=== PATIENT | female | born 1985 | race Caucasian/White ===

== ENCOUNTER 2017-02-13 02:56 | Emergency (ER) | payer SELFPAY ==
--- NOTE | 2017-02-13 05:34 | ED ORDER SUMMARY ---
..... 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 (05:41 02/13/2017)] [Electronically signed by Kaiden Anderson Dr. (09:47 02/17/2017)] [Electronically locked/signed by Silvina Shields R.N. (05:41 02/13/2017)]
--- NOTE | 2017-02-13 05:34 | ED NURSING NOTES ---
Clinical Report - Nurses [facility] [place] [address] 02/13/2017 3:00 Patient: CYNTHIA KNOWLES TRIAGE Triage time 03:09. Acuity: LEVEL 4. Chief Complaint: LEFT LOWER EXTREMITY PAIN. Location of symptoms- (left lower leg pain). Alert. GENARO COMA SCORE: Genaro Coma Scale: 15- eyes open spontaneously (4); best verbal response- oriented x 4 (5); best motor response- obeys commands (6). --03:18 Amrik Dubois R.N. 03:09 02/13/17. BP: 107/75. HR: 69. RR: 20 (regular and unlabored). O2 saturation: 100% on room air. Temp: 97.8 F (oral). Pain level now: 11/25. --03:18 Amrik Dubois R.N. Weight: 68 kg stated. Height/Length: 70 inches Per Patient. BMI: 21.5. --03:08 Amrik Dubois R.N. Medications Excedrin Migraine Oral. --03:10 Amrik Dubois R.N. Allergies NKA. --03:10 Amrik Dubois R.N. History Arrived by private vehicle. Historian: patient. Accompanied by friend. This occurred (3 days ago). ( pt states that she awoke in the morning of 3 days ago with left leg pain.). PAST MEDICAL HX: Last normal menstrual period- 6 weeks ago. ( Patient admits that there is a possibility of , because she is not on control). SOCIAL HX: Heavy tobacco smoker (cigarette)- 1 pack per day. Occasional alcohol use. No drug use. ( Denies HI/SI, states that she feels safe at home). ABUSE ASSESSMENT: No report of abuse. FALL RISK ASSESSMENT: Fall risk assessment completed. No fall risk identified. NUTRITIONAL RISK ASSESSMENT: The nutritional risk assessment revealed no deficiencies. LEARNING NEEDS ASSESSMENT: The learning needs assessment revealed no barriers. --03:18 Amrik Dubois R.N. ( Patient denies having a recent trauma to her lower legs). --03:32 Amrik Dubois R.N. PROBLEMS: Migraine Headache. --03:11 Amrik Dubois R.N. ADDITIONAL SURGERIES: no known surgeries. Interventions ID band on patient. To room. --03:18 Amrik Dubois R.N. PHYSICAL ASSESSMENT To room via wheelchair. GENERAL / NEURO / PSYCH: Oriented X 4. Does not appear in pain or distress or anxious. SKIN: Skin is warm and dry. ( sunburn to bilateratal lower legs, patient states that it happened after being in the sun today.). --03:20 Amrik Dubois R.N. EXTREMITIES: ( no LE swelling observed. No external abnormality observed on left lower leg (except for the sunburn, which the patient states she acquired today.) When asked where her leg pain is currently, she indicates the areas of her sunburned-ankles/lower calves. This sunburn is bilateral, with well-defined margins and roughly rectangular shaped on both left and right). --03:31 Amrik Dubois R.N. NURSING PROGRESS NOTES Patient gowned. Reassurance given. Two patient identifiers checked. Call light placed in reach. Side rails up x 1. Bed placed in lowest position. Brakes of bed on. Patient ready for evaluation- chart flagged. Patient waiting for evaluation. ( Patient reports to me that her last BM was "3 days ago."). --03:20 Amrik Dubois R.N. 03:51 02/13/2017 Hydrocodone-APAP (Hydrocodone-Acetaminophen) PO 5/325 mg Tablets 1 tab given. Allergies verified, confirmed 5 rights and sedative warning given to the patient. --03:51 Amrik Dubois R.N. ( [employer] stated that she would arrive in 45 minutes. I notified the patient of the Ultrasound's estimated time of arrival.). --03:52 Amrik Dubois R.N. DISPOSITION / DISCHARGE 05:36 02/13/17. BP: 120/73. HR: 65. RR: 15. O2 saturation: 100%. Temp: deferred. Pelletier-Mai pain scale: 4/10. --05:37 Silvina Shields R.N. Condition at departure: stable. No learning barriers present. Discharge instructions provided and reviewed with the patient. Reviewed medication(s) side effects, precautions, dosing and course information. Prescription(s) given to the patient. Patient verbalized understanding. Written instructions provided in Polish. The patient was discharged home and accompanied by sound tester. She left the Emergency Department ambulatory and via private vehicle. 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 --05:41 Silvina Shields R.N. Locked/Released at 02/13/2017 5:41 by Silvina Shields R.N.
--- NOTE | 2017-02-13 05:34 | ED ORDER SUMMARY ---
..... Patient: CYNTHIA KNOWLES OrderSheet [facility] VisitID: [id number] [address] [place] [address] 31y, F Registration Date/Time: 02/13/2017 ORDER SHEET Weight: 68.0 kg (stated) Allergies: NKA GENERAL ORDERS: US Venous Bilat Urgent (03:44 02/13/2017 Olesya Buckley) (Ack 3:48 Db Manager Environmental Services) (5:41 Santa R.N.) MEDICATION ORDERS: Hydrocodone-APAP PO 5/325 mg (NOW, HIGH ALERT MEDICATION) (03:45 02/13/2017 Olesya Buckley) (3:51 Ginger R.NPenny) IV FLUIDS: ORDER SHEET NOTES: [Electronically signed by Silvina Shields R.N. (05:41 02/13/2017)] [Electronically signed by Kaiden Anderson Dr. (09:47 02/17/2017)] [Electronically locked/signed by Silvina Shields R.N. (05:41 02/13/2017)]
--- NOTE | 2017-02-13 05:34 | ED NURSING NOTES ---
Clinical Report - Nurses [facility] [place] [address] 02/13/2017 3:00 Patient: CYNTHIA KNOWLES TRIAGE Triage time 03:09. Acuity: LEVEL 4. Chief Complaint: LEFT LOWER EXTREMITY PAIN. Location of symptoms- (left lower leg pain). Alert. GENARO COMA SCORE: Genaro Coma Scale: 15- eyes open spontaneously (4); best verbal response- oriented x 4 (5); best motor response- obeys commands (6). --03:18 Amrik Dubois R.N. 03:09 02/13/17. BP: 107/75. HR: 69. RR: 20 (regular and unlabored). O2 saturation: 100% on room air. Temp: 97.8 F (oral). Pain level now: 11/25. --03:18 Amrik Dubois R.N. Weight: 68 kg stated. Height/Length: 70 inches Per Patient. BMI: 21.5. --03:08 Amrik Dubois R.N. Medications Excedrin Migraine Oral. --03:10 Amrik Dubois R.N. Allergies NKA. --03:10 Amrik Dubois R.N. History Arrived by private vehicle. Historian: patient. Accompanied by friend. This occurred (3 days ago). ( pt states that she awoke in the morning of 3 days ago with left leg pain.). PAST MEDICAL HX: Last normal menstrual period- 6 weeks ago. ( Patient admits that there is a possibility of , because she is not on control). SOCIAL HX: Heavy tobacco smoker (cigarette)- 1 pack per day. Occasional alcohol use. No drug use. ( Denies HI/SI, states that she feels safe at home). ABUSE ASSESSMENT: No report of abuse. FALL RISK ASSESSMENT: Fall risk assessment completed. No fall risk identified. NUTRITIONAL RISK ASSESSMENT: The nutritional risk assessment revealed no deficiencies. LEARNING NEEDS ASSESSMENT: The learning needs assessment revealed no barriers. --03:18 Amrik Dubois R.N. ( Patient denies having a recent trauma to her lower legs). --03:32 Amrik Dubois R.N. PROBLEMS: Migraine Headache. --03:11 Amrik Dubois R.N. ADDITIONAL SURGERIES: no known surgeries. Interventions ID band on patient. To room. --03:18 Amrik Dubois R.N. PHYSICAL ASSESSMENT To room via wheelchair. GENERAL / NEURO / PSYCH: Oriented X 4. Does not appear in pain or distress or anxious. SKIN: Skin is warm and dry. ( sunburn to bilateratal lower legs, patient states that it happened after being in the sun today.). --03:20 Amrik Dubois R.N. EXTREMITIES: ( no LE swelling observed. No external abnormality observed on left lower leg (except for the sunburn, which the patient states she acquired today.) When asked where her leg pain is currently, she indicates the areas of her sunburned-ankles/lower calves. This sunburn is bilateral, with well-defined margins and roughly rectangular shaped on both left and right). --03:31 Amrik Dubois R.N. NURSING PROGRESS NOTES Patient gowned. Reassurance given. Two patient identifiers checked. Call light placed in reach. Side rails up x 1. Bed placed in lowest position. Brakes of bed on. Patient ready for evaluation- chart flagged. Patient waiting for evaluation. ( Patient reports to me that her last BM was "3 days ago."). --03:20 Amrik Dubois R.N. 03:51 02/13/2017 Hydrocodone-APAP (Hydrocodone-Acetaminophen) PO 5/325 mg Tablets 1 tab given. Allergies verified, confirmed 5 rights and sedative warning given to the patient. --03:51 Amrik Dubois R.N. ( [employer] stated that she would arrive in 45 minutes. I notified the patient of the Ultrasound's estimated time of arrival.). --03:52 Amrik Dubois R.N. DISPOSITION / DISCHARGE 05:36 02/13/17. BP: 120/73. HR: 65. RR: 15. O2 saturation: 100%. Temp: deferred. Pelletier-Mai pain scale: 4/10. --05:37 Silvina Shields R.N. Condition at departure: stable. No learning barriers present. Discharge instructions provided and reviewed with the patient. Reviewed medication(s) side effects, precautions, dosing and course information. Prescription(s) given to the patient. Patient verbalized understanding. Written instructions provided in Frisian. The patient was discharged home and accompanied by high rigger. She left the Emergency Department ambulatory and via private vehicle. 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 --05:41 Silvina Shields R.N. Locked/Released at 02/13/2017 5:41 by Silvina Shields R.N.
--- NOTE | 2017-02-13 05:34 | ED CLINICAL REPORT ---
Clinical Report - Physicians/Mid Levels [facility] [address] [place] [address] 02/13/2017 3:00 Patient: CYNTHIA KNOWLES Time Seen: 0340. Arrived- By private vehicle. Historian- patient. HISTORY OF PRESENT ILLNESS Chief Complaint: (pain the legs bilaterally with sunburn over those areas). This started today and is still present. It was gradual in onset and has been constant but is not gone now. It is described as painful and burning. It has been located on the right lower extremity and left lower extremity. A possible cause has been identified (sunburn). (patient describes pain to the legs bilaterally but more on the left than on the right. When asked if there is swelling to the legs she has notice, patient states yes they are a little swollen without signs of swelling on my exam. patient also states she is having a cough, fever, generalized rash and itching to the skin. Patient reports she is "infected".). Similar symptoms previously: None. Recent medical care: Not recently seen/assessed. REVIEW OF SYSTEMS The patient has had fever, a sore throat and cough and nausea. All systems otherwise negative, except as recorded above. PAST HISTORY See nurses notes. Tetanus immunization status is up-to-date. ADDITIONAL NOTES The nursing notes have been reviewed. PHYSICAL EXAM Vital Signs: 02/13/2017 05:36 BP: 120/73. HR: 65. RR: 15. O2 saturation: 100%. Pelletier-Mai pain scale: 4/10. Blood pressure normal. Oxygen saturation normal. Appearance: Alert. Oriented X3. No acute distress. Eyes: Pupils equal, round and reactive to light. Conjunctivae and eyelids normal. ENT: Ears normal. Nose normal. Pharynx normal. Neck: Neck supple. No lymphadenopathy or meningeal signs. CVS: Normal heart rate and rhythm. Heart sounds normal. Respiratory: No respiratory distress. Breath sounds normal. Chest nontender. Abdomen: Nontender. No organomegaly. Skin: Skin warm and dry. Normal skin color. No rash. Normal skin turgor. No abscess. (except for the arms and legs with excoriated areas in different stages of healing. no signs of infection, fb, or active bleeding. Small rectangular are of 1st degree burn to the ankles bilaterally and symmetrical.). Extremities: Normal external inspection. Extremities nontender. (no edema. no palpable cord. no calf tenderness. DP and PT pulses 2+ and symmetrical. compartments soft.). Neuro: Oriented X 3. No motor deficit. No sensory deficit. LABS, X-RAYS, AND EKG Lower Extremity Sonography: Negative exam. No compression abnormality noted. Vessels patent. Augmented flow present. The exam was performed by a exercise equipment repair technician. The study was independently viewed by me and interpreted by the radiologist. The study was discussed with the radiologist (via pacs). PROGRESS AND PROCEDURES Course of Care: The patient is a pleassnat 31 yo female with a number of medical concerns. She states there are several entities which are seeming unrelated. No breathing problems. No crackels. vitals are normal. Feel CXR and radiation exposure too significant given normal exam. Patient could have DVT and will be evaluated for this. No signs of skin infection. Patient agreeable to work up. Pain medication provided. Safe ride home verified. patient without signs of DVT on US. patient low risk for DVT. Discussed with patient her work up here in the Emergency dpeartment, diagnosis, home care, follow up, and return precautions. All questionsanswered. the patient expressed understanding of these instructions andwas agreeable to them. Disposition: Discharged. Condition: good. CLINICAL IMPRESSION Multiple first degree valenzuela to the right ankle and left ankle. No burn with infection present. INSTRUCTIONS Warnings: GENERAL WARNINGS: Return or contact your physician immediately if your condition worsens or changes unexpectedly, if not improving as expected, or if other problems arise. Specifically return if pain, vomiting, bleeding, breathing difficulty or fever. Your Current Medications: CONTINUE TAKING THE FOLLOWING MEDICATIONS: Excedrin Migraine Oral. Prescription Medications: Triamcinolone 0.5% cream: apply to affected areas daily for 2 weeks, as needed for itching, rash or irritation. Dispense sixty (60) grams. No refills. (Do not use longer than 2 weeks.) Follow-up: Return to the emergency department as needed. Follow up with your doctor in one week. Reason for referral: recheck today's concerns. Summary of care provided to patient via paper. Screening today revealed the patient's blood pressure to be in the normal range. The patient should follow up with a primary care provider for blood pressure management. Understanding of the discharge instructions verbalized by patient. Follow-up with: [facility], , , [address], , [place], [id number] Follow up in one week. Reason for referral: contact to schedule an appointment if you do not have a primary care provider (PCP). Summary of care provided to patient via paper. (Electronically signed by Kaiden Anderson Dr. 02/17/2017 9:47)
--- NOTE | 2017-02-13 05:34 | ED CLINICAL REPORT ---
Clinical Report - Physicians/Mid Levels [facility] [address] [place] [address] 02/13/2017 3:00 Patient: CYNTHIA KNOWLES Time Seen: 0340. Arrived- By private vehicle. Historian- patient. HISTORY OF PRESENT ILLNESS Chief Complaint: (pain the legs bilaterally with sunburn over those areas). This started today and is still present. It was gradual in onset and has been constant but is not gone now. It is described as painful and burning. It has been located on the right lower extremity and left lower extremity. A possible cause has been identified (sunburn). (patient describes pain to the legs bilaterally but more on the left than on the right. When asked if there is swelling to the legs she has notice, patient states yes they are a little swollen without signs of swelling on my exam. patient also states she is having a cough, fever, generalized rash and itching to the skin. Patient reports she is "infected".). Similar symptoms previously: None. Recent medical care: Not recently seen/assessed. REVIEW OF SYSTEMS The patient has had fever, a sore throat and cough and nausea. All systems otherwise negative, except as recorded above. PAST HISTORY See nurses notes. Tetanus immunization status is up-to-date. ADDITIONAL NOTES The nursing notes have been reviewed. PHYSICAL EXAM Vital Signs: 02/13/2017 05:36 BP: 120/73. HR: 65. RR: 15. O2 saturation: 100%. Pelletier-Mai pain scale: 4/10. Blood pressure normal. Oxygen saturation normal. Appearance: Alert. Oriented X3. No acute distress. Eyes: Pupils equal, round and reactive to light. Conjunctivae and eyelids normal. ENT: Ears normal. Nose normal. Pharynx normal. Neck: Neck supple. No lymphadenopathy or meningeal signs. CVS: Normal heart rate and rhythm. Heart sounds normal. Respiratory: No respiratory distress. Breath sounds normal. Chest nontender. Abdomen: Nontender. No organomegaly. Skin: Skin warm and dry. Normal skin color. No rash. Normal skin turgor. No abscess. (except for the arms and legs with excoriated areas in different stages of healing. no signs of infection, fb, or active bleeding. Small rectangular are of 1st degree burn to the ankles bilaterally and symmetrical.). Extremities: Normal external inspection. Extremities nontender. (no edema. no palpable cord. no calf tenderness. DP and PT pulses 2+ and symmetrical. compartments soft.). Neuro: Oriented X 3. No motor deficit. No sensory deficit. LABS, X-RAYS, AND EKG Lower Extremity Sonography: Negative exam. No compression abnormality noted. Vessels patent. Augmented flow present. The exam was performed by a stress test technician. The study was independently viewed by me and interpreted by the radiologist. The study was discussed with the radiologist (via pacs). PROGRESS AND PROCEDURES Course of Care: The patient is a pleassnat 31 yo female with a number of medical concerns. She states there are several entities which are seeming unrelated. No breathing problems. No crackels. vitals are normal. Feel CXR and radiation exposure too significant given normal exam. Patient could have DVT and will be evaluated for this. No signs of skin infection. Patient agreeable to work up. Pain medication provided. Safe ride home verified. patient without signs of DVT on US. patient low risk for DVT. Discussed with patient her work up here in the Emergency dpeartment, diagnosis, home care, follow up, and return precautions. All questionsanswered. the patient expressed understanding of these instructions andwas agreeable to them. Disposition: Discharged. Condition: good. CLINICAL IMPRESSION Multiple first degree valenzuela to the right ankle and left ankle. No burn with infection present. INSTRUCTIONS Warnings: GENERAL WARNINGS: Return or contact your physician immediately if your condition worsens or changes unexpectedly, if not improving as expected, or if other problems arise. Specifically return if pain, vomiting, bleeding, breathing difficulty or fever. Your Current Medications: CONTINUE TAKING THE FOLLOWING MEDICATIONS: Excedrin Migraine Oral. Prescription Medications: Triamcinolone 0.5% cream: apply to affected areas daily for 2 weeks, as needed for itching, rash or irritation. Dispense sixty (60) grams. No refills. (Do not use longer than 2 weeks.) Follow-up: Return to the emergency department as needed. Follow up with your doctor in one week. Reason for referral: recheck today's concerns. Summary of care provided to patient via paper. Screening today revealed the patient's blood pressure to be in the normal range. The patient should follow up with a primary care provider for blood pressure management. Understanding of the discharge instructions verbalized by patient. Follow-up with: [facility], , , [address], , [place], [id number] Follow up in one week. Reason for referral: contact to schedule an appointment if you do not have a primary care provider (PCP). Summary of care provided to patient via paper. (Electronically signed by Kaiden Anderson Dr. 02/17/2017 9:47)
--- NOTE | 2017-02-13 06:14 | DIAGNOSTIC IMAGING REPORT ---
PROCEDURE: US VENOUS - BILATERAL EXT INDICATION: Bilateral lower extremity pain. TECHNIQUE: Color Doppler duplex imaging of the deep and superficial venous system without and with compression. COMPARISON: None. FINDINGS: RIGHT LOWER EXTREMITY: Deep and superficial venous system of the right lower extremity is within normal limits. There is no evidence of deep vein thrombosis or superficial thrombophlebitis. LEFT LOWER EXTREMITY: Deep and superficial venous system of the left lower extremity is within normal limits. There is no evidence of deep vein thrombosis or superficial thrombophlebitis. IMPRESSION: 1. Negative venous ultrasound of the bilateral lower extremities.
--- NOTE | 2017-02-17 09:49 | ED DISCHARGE INSTRUCTIONS ---
Patient: CYNTHIA KNOWLES General Instructions [facility] VisitID: [id number] [address] [place] [address] 31y, F Registration Date/Time: 02/13/2017 Multiple first degree valenzuela to the right ankle and left ankle. No burn with infection present. INSTRUCTIONS Warnings: GENERAL WARNINGS: Return or contact your physician immediately if your condition worsens or changes unexpectedly, if not improving as expected, or if other problems arise. Specifically return if pain, vomiting, bleeding, breathing difficulty or fever. Your Current Medications: CONTINUE TAKING THE FOLLOWING MEDICATIONS: Excedrin Migraine Oral. Prescription Medications: Triamcinolone 0.5% cream: apply to affected areas daily for 2 weeks, as needed for itching, rash or irritation. Dispense sixty (60) grams. No refills. (Do not use longer than 2 weeks.) Follow-up: Return to the emergency department as needed. Follow up with your doctor in one week. Reason for referral: recheck today's concerns. Summary of care provided to patient via paper. Screening today revealed the patient's blood pressure to be in the normal range. The patient should follow up with a primary care provider for blood pressure management. Understanding of the discharge instructions verbalized by patient. Follow-up with: [facility], , , [address], [place], [id number] Follow up in one week. Reason for referral: contact to schedule an appointment if you do not have a primary care provider (PCP). Summary of care provided to patient via paper. ADDITIONAL INFORMATION Sunburn A sunburn is an injury to the skin caused by over-exposure to ultraviolet (UV) light from the sun. The skin becomes pink or red and painful. There may be headache and a low grade fever. Very severe sunburns may cause blistering and fluid draining from the skin. Open blisters may become infected, so watch for the signs below. The reaction begins to get better after 12 days. A few days later the skin begins to peel. Depending on how severe the burn is, it may take up to three weeks to fully heal. Home care The following guidelines will help you care for you sunburn at home: 1) Apply an ice pack (ice cubes in a plastic bag, wrapped in a towel) over the injured area for 20 minutes every 12 hours the first day for pain relief. Continue this 34 times a day until the pain goes away. Cool baths and showers will also give relief. 2) Fjlb-gcn-xdywtno first-aid creams and sprays contain lidocaine or benzocaine, an anesthetic which also relieves pain. However, some persons are sensitive to "geo". If redness or itching increases, discontinue their use. 3) If blisters appear, don't break them. Open blisters slow the healing process and increase the risk of infection. Treat open blisters with antibacterial cream or ointment. 4) Wash the burned area daily with soap and water. Pat dry with a clean towel. Apply a moisturizing cream with aloe. Hydrocortisone cream (sold over the counter) may help decrease pain and swelling and speed up healing. If a dressing was applied, reapply it until any open blisters dry up. If the bandage sticks, soak it off in warm water. 5) You may use ibuprofen or naproxen to control pain, unless another pain medicine was prescribed. If you have chronic liver or kidney disease or ever had a stomach ulcer or GI bleeding, talk with your doctor before using these medicines. Do not use ibuprofen in children under six months of age. 6) Drink plenty of fluids to avoid dehydration. Prevention Sun exposure damages the DNA of skin cells and contributes to aging skin. It is the main cause of skin cancer. Protect your skin using the tips below: Limit your exposure to UV light. The sun is strongest during the hours 10 a.m. and 4 p.m. If possible, arrange your sun exposure to be before or after those hours. The effect is more intense at the beach where light reflects off the sand and water, and at higher altitudes, especially where there is reflecting snow. You can even get a sunburn on a cloudy day, since most of the UV light passes through clouds. Cover up with clothing and a hat. Clothing is more effective than sunscreen in blocking UV light. Stay in the shade or carry an umbrella. Apply sunscreen to uncovered skin. Reapply every two hours, and sooner if it is washed away by sweating or water. Use a sunscreen rated at SPF 15 or higher. Wear sunglasses to protect your eyes from UV exposure. Many heart, nausea, anti-inflammatory, and diabetic medications, as well as antibiotics and diuretics, can increase yoursensitivityto the sun. Check medication pamphlets and talk with your doctor if you are unsure about your increased risk of sun sensitivity. Sunscreens may not prevent this response. Follow-up care Most sunburns heal without infection. Occasionally an infection may occur despite proper treatment. Therefore, watch for the signs of infection listed below. When to seek medical care Get prompt medical attention if any of the following occur: Increasing pain Increasing redness, or red streaks leading away from an open blister Swelling or pus coming from open blisters Fever over 100.4 F (38.0 C) Triamcinolone Acetonide, Distilled Water Topical cream What is this medicine? TRIAMCINOLONE (trye am SIN oh lone) is a corticosteroid. It is used on the skin to reduce swelling, redness, itching, and allergic reactions. How should I use this medicine? This medicine is for external use only. Do not take by mouth. Follow the directions on the prescription label. Wash your hands before and after use. Apply a thin film of medicine to the affected area. Do not cover with a bandage or dressing unless your doctor or health hospice spiritual care coordinator tells you to. Do not use on healthy skin or over large areas of skin. Do not get this medicine in your eyes. If you do, rinse out with plenty of cool tap water. It is important not to use more medicine than prescribed. Do not use your medicine more often than directed. Talk to your winch runner regarding the use of this medicine in children. Special care may be needed. Elderly patients are more likely to have damaged skin through aging, and this may increase side effects. This medicine should only be used for brief periods and infrequently in older patients. What side effects may I notice from receiving this medicine? Side effects that you should report to your doctor or health hospice spiritual care coordinator as soon as possible: burning or itching of the skin dark red spots on the skin infection painful, red, pus filled blisters in hair follicles thinning of the skin, sunburn more likely especially on the face Side effects that usually do not require medical attention (report to your doctor or health hospice spiritual care coordinator if they continue or are bothersome): dry skin, irritation unusual increased growth of hair on the face or body What may interact with this medicine? Interactions are not expected. What if I miss a dose? If you miss a dose, use it as soon as you can. If it is almost time for your next dose, use only that dose. Do not use double or extra doses. Where should I keep my medicine? Keep out of the reach of children. Store at room temperature between 15 and 30 degrees C (59 and 86 degrees F). Do not freeze. Throw away any unused medicine after the expiration date. What should I tell my health care provider before I take this medicine? They need to know if you have any of these conditions: diabetes infection, like tuberculosis, herpes, or fungal infection large areas of burned or damaged skin skin wasting or thinning an unusual or allergic reaction to triamcinolone, corticosteroids, other medicines, foods, dyes, or preservatives or trying to get breast-feeding What should I watch for while using this medicine? Tell your doctor or health hospice spiritual care coordinator if your symptoms do not start to get better within one week. Do not use for more than 14 days. Do not use on healthy skin or over large areas of skin. Tell your doctor or health hospice spiritual care coordinator if you are exposed to anyone with measles or chickenpox, or if you develop sores or blisters that do not heal properly. Do not use an airtight bandage to cover the affected area unless your doctor or health hospice spiritual care coordinator tells you to. If you are to cover the area, follow the instructions carefully. Covering the area where the medicine is applied can increase the amount that passes through the skin and increases the risk of side effects. If treating the diaper area of a child, avoid covering the treated area with tight-fitting diapers or plastic pants. This may increase the amount of medicine that passes through the skin and increase the risk of serious side effects. You have been given the following additional information: Sunburn Triamcinolone Acetonide, Distilled Water Topical cream (Electronically signed by Kaiden Anderson Dr. 02/17/2017 9:47)
--- NOTE | 2017-02-17 09:49 | ED MED RECONCILIATION SUMMARY ---
Patient: CYNTHIA KNOWLES Medication Reconciliation Report [facility] VisitID: [id number] [place] [address] 31y, F Registration Date/Time: 02/13/2017 Weight: 68.0 kg Height/Length: 70 in. BMI: 21.5 ALLERGIES: NKA The patient's Home Medications are listed below: CONTINUE TAKING THE FOLLOWING MEDICATIONS: Excedrin Migraine Oral The source(s) of the original Home Medication information: Not obtained. The following Medications were given to the patient in the Emergency Department: Hydrocodone-APAP [PO] PO 1 tab, administered: 02/13/2017 3:51:00 AM The following Medications were prescribed to the patient: Triamcinolone 0.5% cream: apply to affected areas daily for 2 weeks, as needed for itching, rash or irritation. Dispense sixty (60) grams. No refills.(Do not use longer than 2 weeks.) -- Kaiden Anderson Dr.
--- NOTE | 2017-02-17 09:49 | ED MAR SUMMARY ---
..... Medication Administration Record [facility] [address] [place] [address] Patient: CYNTHIA KNOWLES Visit ID: [id number] 31y, F Weight: 68.0 kg Height/Length: 70 in BMI: 21.5 ALLERGIES: NKA Given 03:51 02/13/2017 Amrik Dubois R.N. Medication Administered: HYDROCODONE-APAP [PO] (HYDROCODONE-ACETAMINOPHEN), Dose: 1 tab 5/325 mg Tablets PO. Medication Ordered: Hydrocodone-APAP PO 5/325 mg (NOW, HIGH ALERT MEDICATION).
--- NOTE | 2017-02-17 09:49 | ED DISCHARGE INSTRUCTIONS ---
Patient: CYNTHIA KNOWLES General Instructions [facility] VisitID: [id number] [address] [place] [address] 31y, F Registration Date/Time: 02/13/2017 Multiple first degree valenzuela to the right ankle and left ankle. No burn with infection present. INSTRUCTIONS Warnings: GENERAL WARNINGS: Return or contact your physician immediately if your condition worsens or changes unexpectedly, if not improving as expected, or if other problems arise. Specifically return if pain, vomiting, bleeding, breathing difficulty or fever. Your Current Medications: CONTINUE TAKING THE FOLLOWING MEDICATIONS: Excedrin Migraine Oral. Prescription Medications: Triamcinolone 0.5% cream: apply to affected areas daily for 2 weeks, as needed for itching, rash or irritation. Dispense sixty (60) grams. No refills. (Do not use longer than 2 weeks.) Follow-up: Return to the emergency department as needed. Follow up with your doctor in one week. Reason for referral: recheck today's concerns. Summary of care provided to patient via paper. Screening today revealed the patient's blood pressure to be in the normal range. The patient should follow up with a primary care provider for blood pressure management. Understanding of the discharge instructions verbalized by patient. Follow-up with: [facility], , , [address], [place], [id number] Follow up in one week. Reason for referral: contact to schedule an appointment if you do not have a primary care provider (PCP). Summary of care provided to patient via paper. ADDITIONAL INFORMATION Sunburn A sunburn is an injury to the skin caused by over-exposure to ultraviolet (UV) light from the sun. The skin becomes pink or red and painful. There may be headache and a low grade fever. Very severe sunburns may cause blistering and fluid draining from the skin. Open blisters may become infected, so watch for the signs below. The reaction begins to get better after 12 days. A few days later the skin begins to peel. Depending on how severe the burn is, it may take up to three weeks to fully heal. Home care The following guidelines will help you care for you sunburn at home: 1) Apply an ice pack (ice cubes in a plastic bag, wrapped in a towel) over the injured area for 20 minutes every 12 hours the first day for pain relief. Continue this 34 times a day until the pain goes away. Cool baths and showers will also give relief. 2) Tcpp-yal-riikdnk first-aid creams and sprays contain lidocaine or benzocaine, an anesthetic which also relieves pain. However, some persons are sensitive to "geo". If redness or itching increases, discontinue their use. 3) If blisters appear, don't break them. Open blisters slow the healing process and increase the risk of infection. Treat open blisters with antibacterial cream or ointment. 4) Wash the burned area daily with soap and water. Pat dry with a clean towel. Apply a moisturizing cream with aloe. Hydrocortisone cream (sold over the counter) may help decrease pain and swelling and speed up healing. If a dressing was applied, reapply it until any open blisters dry up. If the bandage sticks, soak it off in warm water. 5) You may use ibuprofen or naproxen to control pain, unless another pain medicine was prescribed. If you have chronic liver or kidney disease or ever had a stomach ulcer or GI bleeding, talk with your doctor before using these medicines. Do not use ibuprofen in children under six months of age. 6) Drink plenty of fluids to avoid dehydration. Prevention Sun exposure damages the DNA of skin cells and contributes to aging skin. It is the main cause of skin cancer. Protect your skin using the tips below: Limit your exposure to UV light. The sun is strongest during the hours 10 a.m. and 4 p.m. If possible, arrange your sun exposure to be before or after those hours. The effect is more intense at the beach where light reflects off the sand and water, and at higher altitudes, especially where there is reflecting snow. You can even get a sunburn on a cloudy day, since most of the UV light passes through clouds. Cover up with clothing and a hat. Clothing is more effective than sunscreen in blocking UV light. Stay in the shade or carry an umbrella. Apply sunscreen to uncovered skin. Reapply every two hours, and sooner if it is washed away by sweating or water. Use a sunscreen rated at SPF 15 or higher. Wear sunglasses to protect your eyes from UV exposure. Many heart, nausea, anti-inflammatory, and diabetic medications, as well as antibiotics and diuretics, can increase yoursensitivityto the sun. Check medication pamphlets and talk with your doctor if you are unsure about your increased risk of sun sensitivity. Sunscreens may not prevent this response. Follow-up care Most sunburns heal without infection. Occasionally an infection may occur despite proper treatment. Therefore, watch for the signs of infection listed below. When to seek medical care Get prompt medical attention if any of the following occur: Increasing pain Increasing redness, or red streaks leading away from an open blister Swelling or pus coming from open blisters Fever over 100.4 F (38.0 C) Triamcinolone Acetonide, Distilled Water Topical cream What is this medicine? TRIAMCINOLONE (trye am SIN oh lone) is a corticosteroid. It is used on the skin to reduce swelling, redness, itching, and allergic reactions. How should I use this medicine? This medicine is for external use only. Do not take by mouth. Follow the directions on the prescription label. Wash your hands before and after use. Apply a thin film of medicine to the affected area. Do not cover with a bandage or dressing unless your doctor or health medicare sales executive tells you to. Do not use on healthy skin or over large areas of skin. Do not get this medicine in your eyes. If you do, rinse out with plenty of cool tap water. It is important not to use more medicine than prescribed. Do not use your medicine more often than directed. Talk to your public service representative regarding the use of this medicine in children. Special care may be needed. Elderly patients are more likely to have damaged skin through aging, and this may increase side effects. This medicine should only be used for brief periods and infrequently in older patients. What side effects may I notice from receiving this medicine? Side effects that you should report to your doctor or health medicare sales executive as soon as possible: burning or itching of the skin dark red spots on the skin infection painful, red, pus filled blisters in hair follicles thinning of the skin, sunburn more likely especially on the face Side effects that usually do not require medical attention (report to your doctor or health medicare sales executive if they continue or are bothersome): dry skin, irritation unusual increased growth of hair on the face or body What may interact with this medicine? Interactions are not expected. What if I miss a dose? If you miss a dose, use it as soon as you can. If it is almost time for your next dose, use only that dose. Do not use double or extra doses. Where should I keep my medicine? Keep out of the reach of children. Store at room temperature between 15 and 30 degrees C (59 and 86 degrees F). Do not freeze. Throw away any unused medicine after the expiration date. What should I tell my health care provider before I take this medicine? They need to know if you have any of these conditions: diabetes infection, like tuberculosis, herpes, or fungal infection large areas of burned or damaged skin skin wasting or thinning an unusual or allergic reaction to triamcinolone, corticosteroids, other medicines, foods, dyes, or preservatives or trying to get breast-feeding What should I watch for while using this medicine? Tell your doctor or health medicare sales executive if your symptoms do not start to get better within one week. Do not use for more than 14 days. Do not use on healthy skin or over large areas of skin. Tell your doctor or health medicare sales executive if you are exposed to anyone with measles or chickenpox, or if you develop sores or blisters that do not heal properly. Do not use an airtight bandage to cover the affected area unless your doctor or health medicare sales executive tells you to. If you are to cover the area, follow the instructions carefully. Covering the area where the medicine is applied can increase the amount that passes through the skin and increases the risk of side effects. If treating the diaper area of a child, avoid covering the treated area with tight-fitting diapers or plastic pants. This may increase the amount of medicine that passes through the skin and increase the risk of serious side effects. You have been given the following additional information: Sunburn Triamcinolone Acetonide, Distilled Water Topical cream (Electronically signed by Kaiden Anderson Dr. 02/17/2017 9:47)
--- NOTE | 2017-02-17 09:49 | ED MAR SUMMARY ---
..... Medication Administration Record [facility] [address] [place] [address] Patient: CYNTHIA KNOWLES Visit ID: [id number] 31y, F Weight: 68.0 kg Height/Length: 70 in BMI: 21.5 ALLERGIES: NKA Given 03:51 02/13/2017 Amrik Dubois R.N. Medication Administered: HYDROCODONE-APAP [PO] (HYDROCODONE-ACETAMINOPHEN), Dose: 1 tab 5/325 mg Tablets PO. Medication Ordered: Hydrocodone-APAP PO 5/325 mg (NOW, HIGH ALERT MEDICATION).
--- NOTE | 2017-02-17 09:49 | ED MED RECONCILIATION SUMMARY ---
Patient: CYNTHIA KNOWLES Medication Reconciliation Report [facility] VisitID: [id number] [place] [address] 31y, F Registration Date/Time: 02/13/2017 Weight: 68.0 kg Height/Length: 70 in. BMI: 21.5 ALLERGIES: NKA The patient's Home Medications are listed below: CONTINUE TAKING THE FOLLOWING MEDICATIONS: Excedrin Migraine Oral The source(s) of the original Home Medication information: Not obtained. The following Medications were given to the patient in the Emergency Department: Hydrocodone-APAP [PO] PO 1 tab, administered: 02/13/2017 3:51:00 AM The following Medications were prescribed to the patient: Triamcinolone 0.5% cream: apply to affected areas daily for 2 weeks, as needed for itching, rash or irritation. Dispense sixty (60) grams. No refills.(Do not use longer than 2 weeks.) -- Kaiden Anderson Dr.
== END 2017-02-13 05:42 | disposition home or self-care (01) ==
LOC: ED SRH 02:56
DX: L55.0 Sunburn of first degree (principal); M79.605 Pain in left leg; M79.604 Pain in right leg

== ENCOUNTER 2017-02-17 16:41 | Emergency (ER) | payer SELFPAY ==
--- NOTE | 2017-02-17 19:22 | DIAGNOSTIC IMAGING REPORT ---
PROCEDURE: US COMPLETE PELVIC INDICATION: Pelvic pain and fullness. TECHNIQUE: Transabdominal kim scale and color Doppler sonographic images. COMPARISON: None. FINDINGS: Study is limited as bladder is incompletely filled. Uterus is retroverted only partially visualized (obscured by bowel gas). Ovaries are not identified. No evidence of free fluid. Kidneys are normal (right 11.0 cm, left 10.2 cm). IMPRESSION: 1. Limited pelvic ultrasound (bladder incompletely filled). 2. Retroverted uterus (normal variant). 3. No evidence of free fluid.
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
--- NOTE | 2017-02-17 23:21 | ED ORDER SUMMARY ---
..... Patient: CYNTHAI KNOWLES OrderSheet [facility] VisitID: [id number] [place] [address] 31y, F Registration Date/Time: 02/17/2017 ORDER SHEET Weight: 70.3 kg (stated) Allergies: NKA GENERAL ORDERS: Urine Urgent (16:59 02/17/2017 EKoroleva P.A.-C) (Ack 17:06 KHoerner) (20:48 CBradburn R.N.) Urine Drug Screen Urgent (16:59 02/17/2017 EKoroleva P.A.-C) (Ack 17:06 KHoerner) (20:48 CBradburn R.N.) UA-Culture if indicated Urgent (16:59 02/17/2017 EKoroleva P.A.-C) (Ack 17:06 KHoerner) (20:48 CBradburn R.N.) CMP Urgent (16:59 02/17/2017 EKoroleva P.A.-C) (Ack 17:06 KHoerner) (17:59 KHoerner) CBC w Diff Urgent (16:59 02/17/2017 EKoroleva P.A.-C) (Ack 17:06 KHoerner) (17:59 KHoerner) US Pelvic Complete Urgent (17:18 02/17/2017 EKoroleva P.A.-C) (Ack 17:19 KHoerner) (23:11 Rich) Serum Qualitative Urgent (17:54 02/17/2017 EKoroleva P.A.-C) (Ack 17:56 KHoerner) (17:59 KHoerner) TSH Urgent (17:59 02/17/2017 EKoroleva P.A.-C) (17:59 KHoerner) Ethyl Alcohol Urgent (19:48 02/17/2017 EKoroleva P.A.-C) (19:51 AMcQuoid ER Tech1) MEDICATION ORDERS: Ceftriaxone IM 250 mg (NOW) (23:02 02/17/2017 EKoroleva P.A.-C) (Ack 23:08 CBradburn R.N.) (23:23 BLANCAradburn R.N.) Azithromycin PO 1000 mg (NOW) (23:02 02/17/2017 EKoroleva P.A.-C) (Ack 23:08 CBradburn R.N.) (23:24 CBradburn R.N.) Plan B PO 1.5 mg (NOW) (23:03 02/17/2017 EKoroleva P.A.-C) (Ack 23:08 BLANCAradburn R.N.) (23:24 CBradburn R.N.) Metronidazole PO 2000 mg (NOW) (23:07 02/17/2017 EKoroleva P.A.-C) (Ack 23:08 BLANCAradburn R.N.) (23:24 CBradburn R.N.) IV FLUIDS: ORDER SHEET NOTES: [Electronically signed by Jacqueline Jung PPennyAPenny-C (23:28 02/17/2017)] [Electronically signed by Casie Winchester R.N. (23:44 02/17/2017)] [Electronically locked/signed by Casie Winchester R.N. (23:44 02/17/2017)]
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
--- NOTE | 2017-02-17 23:21 | ED ORDER SUMMARY ---
..... Patient: CYNTHIA KNOWLES OrderSheet [facility] VisitID: [id number] [place] [address] 31y, F Registration Date/Time: 02/17/2017 ORDER SHEET Weight: 70.3 kg (stated) Allergies: NKA GENERAL ORDERS: Urine Urgent (16:59 02/17/2017 EKoroleva P.A.-C) (Ack 17:06 KHoerner) (20:48 CBradburn R.N.) Urine Drug Screen Urgent (16:59 02/17/2017 EKoroleva P.A.-C) (Ack 17:06 KHoerner) (20:48 CBradburn R.N.) UA-Culture if indicated Urgent (16:59 02/17/2017 EKoroleva P.A.-C) (Ack 17:06 KHoerner) (20:48 CBradburn R.N.) CMP Urgent (16:59 02/17/2017 EKoroleva P.A.-C) (Ack 17:06 KHoerner) (17:59 KHoerner) CBC w Diff Urgent (16:59 02/17/2017 EKoroleva P.A.-C) (Ack 17:06 KHoerner) (17:59 KHoerner) US Pelvic Complete Urgent (17:18 02/17/2017 EKoroleva P.A.-C) (Ack 17:19 KHoerner) (23:11 Rich) Serum Qualitative Urgent (17:54 02/17/2017 EKoroleva P.A.-C) (Ack 17:56 KHoerner) (17:59 KHoerner) TSH Urgent (17:59 02/17/2017 EKoroleva P.A.-C) (17:59 KHoerner) Ethyl Alcohol Urgent (19:48 02/17/2017 EKoroleva P.A.-C) (19:51 AMcQuoid ER Tech1) MEDICATION ORDERS: Ceftriaxone IM 250 mg (NOW) (23:02 02/17/2017 EKoroleva P.A.-C) (Ack 23:08 CBradburn R.N.) (23:23 BLANCAradburn R.N.) Azithromycin PO 1000 mg (NOW) (23:02 02/17/2017 EKoroleva P.A.-C) (Ack 23:08 CBradburn R.N.) (23:24 CBradburn R.N.) Plan B PO 1.5 mg (NOW) (23:03 02/17/2017 EKoroleva P.A.-C) (Ack 23:08 BLANCAradburn R.N.) (23:24 CBradburn R.N.) Metronidazole PO 2000 mg (NOW) (23:07 02/17/2017 EKoroleva P.A.-C) (Ack 23:08 BLANCAradburn R.N.) (23:24 CBradburn R.N.) IV FLUIDS: ORDER SHEET NOTES: [Electronically signed by Jacqueline Jung PPennyAPenny-C (23:28 02/17/2017)] [Electronically signed by Casie Winchester R.N. (23:44 02/17/2017)] [Electronically locked/signed by Casie Winchester R.N. (23:44 02/17/2017)]
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
--- NOTE | 2017-02-17 23:44 | ED MAR SUMMARY ---
..... Medication Administration Record [facility] [address] [place] [address] Patient: CYNTHIA KNOWLES Visit ID: [id number] 31y, F Weight: 70.3 kg Height/Length: 70 in BMI: 22.2 ALLERGIES: NKA Given 23:02/17/2017 Casie Winchester R.N. Medication Administered: AZITHROMYCIN [PO], Dose: 1000 mg Tablets PO. Medication Ordered: Azithromycin PO 1000 mg (NOW). Given :02/17/2017 Casie Winchester R.N. Medication Administered: PLAN B [PO] (LEVONORGESTREL), Dose: 1.5 mg Tablets PO. Medication Ordered: Plan B PO 1.5 mg (NOW). Given :02/17/2017 Casie Winchester R.N. Medication Administered: METRONIDAZOLE [PO], Dose: 2000 mg Tablets PO. Medication Ordered: Metronidazole PO 2000 mg (NOW). Given 02/17/2017 Casie Winchester R.N. Medication Administered: CEFTRIAXONE [IM], Dose: 250 mg IM. Medication Ordered: Ceftriaxone IM 250 mg (NOW).
--- NOTE | 2017-02-17 23:44 | ED MED RECONCILIATION SUMMARY ---
Patient: CYNTHIA KNOWLES Medication Reconciliation Report [facility] VisitID: [id number] [place] [address] 31y, F Registration Date/Time: 02/17/2017 Weight: 70.3 kg Height/Length: 70 in. BMI: 22.2 ALLERGIES: NKA The patient's Home Medications are listed below: THE FOLLOWING MEDICATIONS NEED TO BE RECONCILED: Excedrin Migraine Oral The source(s) of the original Home Medication information: Not obtained. The following Medications were given to the patient in the Emergency Department: Ceftriaxone [IM] IM 250 mg, administered: 02/17/2017 11:18:00 PM Azithromycin [PO] PO 1000 mg, administered: 02/17/2017 11:14:00 PM Plan B [PO] PO 1.5 mg, administered: 02/17/2017 11:14:00 PM Metronidazole [PO] PO 2000 mg, administered: 02/17/2017 11:14:00 PM The following Medications were prescribed to the patient: Zofran (orally disintegrating tablets) 4 mg: take 1 orally every 6 hours for 3 days as needed for nausea. Dispense ten (10). No refill. Substitution is permissible. -- Erich, Jacqueline, P.A.-C Ibuprofen 600 mg tablets: take 1 tablet orally every 8 hours for 5 days, as needed for pain. Dispense twenty (20). No refill. -- Leoolehermila, Jacqueline, P.A.-C Tylenol ER 650 mg (available over the counter): take 1 orally every 6 hours for 5 days, as needed for pain. Dispense twenty (20). No refill. Substitution is permissible. -- Ercih, Jacqueline, P.A.-C Imodium 2 mg (available over the counter): initially take 2 orally, for 3 days, until symptoms improve. Do not exceed 6 per day. Dispense forty-eight (48). No refills. Substitution is permissible. -- Erich, Jacqueline, P.A.-C
--- NOTE | 2017-02-17 23:44 | ED MED RECONCILIATION SUMMARY ---
Patient: CYNTHIA KNOWLES Medication Reconciliation Report [facility] VisitID: [id number] [place] [address] 31y, F Registration Date/Time: 02/17/2017 Weight: 70.3 kg Height/Length: 70 in. BMI: 22.2 ALLERGIES: NKA The patient's Home Medications are listed below: THE FOLLOWING MEDICATIONS NEED TO BE RECONCILED: Excedrin Migraine Oral The source(s) of the original Home Medication information: Not obtained. The following Medications were given to the patient in the Emergency Department: Ceftriaxone [IM] IM 250 mg, administered: 02/17/2017 11:18:00 PM Azithromycin [PO] PO 1000 mg, administered: 02/17/2017 11:14:00 PM Plan B [PO] PO 1.5 mg, administered: 02/17/2017 11:14:00 PM Metronidazole [PO] PO 2000 mg, administered: 02/17/2017 11:14:00 PM The following Medications were prescribed to the patient: Zofran (orally disintegrating tablets) 4 mg: take 1 orally every 6 hours for 3 days as needed for nausea. Dispense ten (10). No refill. Substitution is permissible. -- Erich, Jacqueline, P.A.-C Ibuprofen 600 mg tablets: take 1 tablet orally every 8 hours for 5 days, as needed for pain. Dispense twenty (20). No refill. -- Leoolehermila, Jacqueline, P.A.-C Tylenol ER 650 mg (available over the counter): take 1 orally every 6 hours for 5 days, as needed for pain. Dispense twenty (20). No refill. Substitution is permissible. -- Erich, Jacqueline, P.A.-C Imodium 2 mg (available over the counter): initially take 2 orally, for 3 days, until symptoms improve. Do not exceed 6 per day. Dispense forty-eight (48). No refills. Substitution is permissible. -- Erich, Jacqueline, P.A.-C
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
--- NOTE | 2017-02-17 23:44 | ED MAR SUMMARY ---
..... Medication Administration Record [facility] [address] [place] [address] Patient: CYNTHIA KNOWLES Visit ID: [id number] 31y, F Weight: 70.3 kg Height/Length: 70 in BMI: 22.2 ALLERGIES: NKA Given 23:02/17/2017 Casie Winchester R.N. Medication Administered: AZITHROMYCIN [PO], Dose: 1000 mg Tablets PO. Medication Ordered: Azithromycin PO 1000 mg (NOW). Given :02/17/2017 Casie Winchester R.N. Medication Administered: PLAN B [PO] (LEVONORGESTREL), Dose: 1.5 mg Tablets PO. Medication Ordered: Plan B PO 1.5 mg (NOW). Given :02/17/2017 Casie Winchester R.N. Medication Administered: METRONIDAZOLE [PO], Dose: 2000 mg Tablets PO. Medication Ordered: Metronidazole PO 2000 mg (NOW). Given 02/17/2017 Casie Winchester R.N. Medication Administered: CEFTRIAXONE [IM], Dose: 250 mg IM. Medication Ordered: Ceftriaxone IM 250 mg (NOW).
== END 2017-02-17 23:38 | disposition home or self-care (01) ==
LOC: ED SRH 16:41
DX: T76.21XA Adult sexual abuse, suspected, initial encounter (principal); Z20.2 Contact with and (suspected) exposure to infections with a predominantly sexual mode of transmission; L55.0 Sunburn of first degree
CPT/HCPCS: 90004; 90074; 90100; 92010; 92760; 92761; 92762; 92763; 92764; 92765; 92766; 92767; 93070; 93140; 95059; 98428